=== PATIENT | male | born 1970 | race Caucasian/White ===

== ENCOUNTER 2017-09-27 14:26 | Emergency (ER) | payer BC ==
--- NOTE | 2017-09-27 14:38 | EDPHY ---
H & P Time Seen by Provider: 09/27/17 14:37 HPI/ROS: CHIEF COMPLAINT: Right knee pain HISTORY OF PRESENT ILLNESS: Patient is a 47-year-old male who presents emergency department after injuring his right knee while skiing. His fall happened earlier today. He states his ski got caught in his office no. This caused his knee to twist. He felt a pop on the medial side of his knee. He now has mild pain at rest on the medial aspect of his knee. It is moderate when ambulating. He is able to ambulate. He has no numbness or tingling. No previous knee surgery. REVIEW OF SYSTEMS: My complete review of systems is negative except as mentioned in the HPI. Past Medical/Surgical History: Noncontributory Physical Exam: General Appearance: Alert and no distress. Head: Pupils equal. Normal. Respiratory: No respiratory distress. Cardiac: regular rate and rhythm. Extremities: [His right knee appears normal. There is mild tenderness palpation over the medial aspect of his knee. No patellar tenderness. Patient has full range of motion of his knee. Under mcl stressed the patient reported pain. There was no laxity. His other ligaments were stable. Skin: No rashes or lesions. Neuro: Alert. Normal mood and affect. Constitutional: Initial Vital Signs Heart Rate 78 09/27/17 14:32 Respiratory Rate 16 09/27/17 14:32 O2 Sat (%) 94 09/27/17 14:32 O2 Delivery Mode Room Air Allergies/Adverse Reactions: No Known Allergies Allergy (Unverified 09/27/17 14:42) Home Medications: Medication Instructions Recorded Omeprazole 09/27/17 Medical Decision Making ED Course/Re-evaluation: In the emergency department I discussed possible etiologies with the patient. I answered all his questions. An x-ray was ordered. Right knee x-ray: Please refer the dictated report. No acute disease noted. I discussed results with the patient. I answered all his questions. The patient was placed in a knee immobilizer. He was given crutches. He will follow up with Orthopedics. He is given contact information. He is given warnings prior to leaving. Differential Diagnosis: My differential includes but is not limited to fracture, dislocation, contusion , sprain, strain, mcl tear Departure - Departure Disposition: Home, Routine, Self-Care Clinical Impression: Knee pain, acute Qualifiers: Laterality: right Qualified Code(s): M25.561 - Pain in right knee Condition: Good Instructions: Knee Pain (ED) Additional Instructions: You need close follow-up with Orthopedics. Use your splint until you have follow-up. Call Dr. Avelar on Thursday morning to arrange an appointment. Referrals: Jabari Avelar MD [Medical Doctor] - 2-3 days without fail
== END 2017-09-27 15:30 | disposition home or self-care (01) ==
LOC: CED 14:26
DX: S89.91XA Unspecified injury of right lower leg, initial encounter (principal); V00.321A Fall from snow-skis, initial encounter; Y99.8 Other external cause status; Y93.23 Activity, snow (alpine) (downhill) skiing, snowboarding, sledding, tobogganing and snow tubing
CPT/HCPCS: 73562-PO; L1830